=== PATIENT | female | born 1985 | race American Indian/Alaskan Native ===

== ENCOUNTER 2021-09-16 19:23 | Emergency (ER) | payer SELFPAY ==
[2021-09-16 20:06] VITALS: BP 128/78
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
[2021-09-16] MEDS ORDERED: ACETAMINOPHEN 500 MG TAB PO ONE (23:48)
[2021-09-16] MEDS ORDERED: IBUPROFEN 600 MG TAB PO ONE (23:48)
== END 2021-09-16 23:57 | disposition home or self-care (01) ==
LOC: ED 19:23
DX: M62.830 Muscle spasm of back (principal); G44.309 Post-traumatic headache, unspecified, not intractable; V89.2XXA Person injured in unspecified motor-vehicle accident, traffic, initial encounter; Y93.89 Activity, other specified; Y92.89 Other specified places as the place of occurrence of the external cause; Y99.8 Other external cause status
CPT/HCPCS: 70450; 72100; 99284